=== PATIENT | male | born 1965 | race African-American/Black ===

== ENCOUNTER 2022-01-17 10:23 | Emergency (ER) | payer SELFPAY ==
[~2022-01-17] VITALS: Ht 177.8 cm; Wt 77.1 kg
[2022-01-17] MEDS ORDERED: NS IV 1000 ML 1,000 ML IV STA (11:14)
[2022-01-17] MEDS ORDERED: PROCHLORPERAZINE 10 MG/2ML INJ (COMPAZINE) IV ONE (11:15)
[2022-01-17] MEDS ORDERED: diphenhydrAMINE 50 MG/ML INJ (BENADRYL) IVP ONE (11:15)
[2022-01-17] MEDS ORDERED: KETOROLAC 30 MG/ML VIAL IVP ONE (11:15)
--- NOTE | 2022-01-17 11:19 | ED Headache ---
General Chief Complaint: COVID19 Suspect/Confirmed Stated Complaint: MIGRAINE Nursing Triage Note: PT BROUGHT IN BY [facility] FROM HOME WITH COMPLAINT OF HEADACHE X10 DAYS AND NAUSEA. PT STATES HE MOVED HERE 3 WEEKS AGO FROM [place] AND HAS BEEN LIVING IN A TENT. Source: patient Exam Limitations: no limitations History of Present Illness Date Seen by Provider: Jan 17, 2022 Time Seen by Provider: 11:16 Initial Comments Patient is a 56-year-old male who presents to the ED for head pain. Head pain is described as throbbing and generalized over the past 10 days. Rates pain to 5 out of 10 without any worsening pain with exertion or throughout the past 10 days. Reports photophobia. Reports some dizziness, lightheadedness and feels like he is going to pass out secondary to the head pain. Denies of any unilateral muscle weakness, visual loss. History of headaches and states feels similar however states headache typically resolves after a few days. He reports the first few days he had vomiting and diarrhea which has improved. He reports generalized weakness. Patient states he has secondary photophobia which exacerbates the headache. Associated neck tightness. Denies any fever, cough, shortness of breath, chest pain, abdominal pain, sore throat, ear pain or any difficulties with urination. No known medical problems according to patient, scalp tenderness, trauma, change in mental status, confusion Allergies and Home Medications Allergies Coded Allergies: No Known Drug Allergies (Unverified , 01/17/22) Patient Home Medication List Home Medication List Reviewed: Yes Review of Systems Review of Systems Constitutional: No chills, No diaphoresis, No malaise; weakness Eyes: Denies Drainage, Denies Decreased Acuity; Photophobia Ears, Nose, Mouth, Throat: denies ear pain, denies ear discharge Respiratory: No cough, No short of breath, No wheezing Cardiovascular: No chest pain, No edema Gastrointestinal: No abdominal pain; diarrhea, nausea, vomiting Genitourinary: No decreased output, No discharge Musculoskeletal: No back pain, No joint pain Skin: No change in color, No change in hair/nails All Other Systems Reviewed Negative Unless Noted: Yes Past Ttmdirc-Wpjkov-Xmthlk Hx Patient Social History Tobacco Use?: Yes Tobacco type used: Cigarettes Smoking Status: Current Everyday Smoker Use of E-Cig and/or Vaping dev: No Substance use?: No Alcohol Use?: Yes Alcohol Frequency: Once in a while Pt feels they are or have been: No Immunizations Up To Date First/Initial COVID19 Vaccinat: 2020 Second COVID19 Vaccination Saw: 2020 Physical Exam Vital Signs Vital Signs - First Documented 01/17/22 10:23 Temp 36.0 Pulse 72 Resp 20 B/P (MAP) 153/55 (87) Pulse Ox 100 O2 Delivery Room Air Capillary Refill : Less Than 3 Seconds Height, Weight, BMI Height: '" Weight: lbs. oz. kg; 24.00 BMI Method: General Appearance: WD/WN, no apparent distress HEENT: PERRL/EOMI, normal ENT inspection, TMs normal Neck: non-tender, full range of motion, supple, normal inspection Cardiovascular: regular rate, rhythm, no edema, no gallop, no JVD Respiratory: chest non-tender, lungs clear, normal breath sounds, no respiratory distress, no accessory muscle use Gastrointestinal: normal bowel sounds, non tender, soft, no organomegaly Back: normal inspection, no CVA tenderness, no vertebral tenderness Extremities: normal range of motion, non-tender, normal inspection, no pedal edema, no calf tenderness Skin: normal color, warm/dry Progress/Results/Core Measures Results/Orders Lab Results Laboratory Tests Test 01/17/22 10:42 01/17/22 11:23 01/17/22 11:35 Range/Units SARS-CoV-2 RNA (RT-PCR) Not Detected Not Detecte Urine Opiates Screen NEGATIVE NEGATIVE Urine Oxycodone Screen NEGATIVE NEGATIVE Urine Methadone Screen NEGATIVE NEGATIVE Urine Propoxyphene Screen NEGATIVE NEGATIVE Urine Barbiturates Screen NEGATIVE NEGATIVE Ur Tricyclic Antidepressants Screen NEGATIVE NEGATIVE Urine Phencyclidine Screen NEGATIVE NEGATIVE Urine Amphetamines Screen NEGATIVE NEGATIVE Urine Methamphetamines Screen NEGATIVE NEGATIVE Urine Benzodiazepines Screen NEGATIVE NEGATIVE Urine Cocaine Screen NEGATIVE NEGATIVE Urine Cannabinoids Screen POSITIVE H NEGATIVE White Blood Count 12.5 H 4.3-11.0 10^3/uL Red Blood Count 4.93 4.30-5.52 10^6/uL Hemoglobin 14.7 13.3-17.7 g/dL Hematocrit 44 40-54 % Mean Corpuscular Volume 90 80-99 fL Mean Corpuscular Hemoglobin 30 25-34 pg Mean Corpuscular Hemoglobin Concent 33 32-36 g/dL Red Cell Distribution Width 13.8 10.0-14.5 % Platelet Count 483 H 130-400 10^3/uL Mean Platelet Volume 8.7 L 9.0-12.2 fL Immature Granulocyte % (Auto) 1 % Neutrophils (%) (Auto) 35 L 42-75 % Lymphocytes (%) (Auto) 58 H 12-44 % Monocytes (%) (Auto) 6 0-12 % Eosinophils (%) (Auto) 0 0-10 % Basophils (%) (Auto) 1 0-10 % Neutrophils # (Auto) 4.4 1.8-7.8 10^3/uL Lymphocytes # (Auto) 7.2 H 1.0-4.0 10^3/uL Monocytes # (Auto) 0.8 0.0-1.0 10^3/uL Eosinophils # (Auto) 0.0 0.0-0.3 10^3/uL Basophils # (Auto) 0.1 0.0-0.1 10^3/uL Immature Granulocyte # (Auto) 0.1 0.0-0.1 10^3/uL Neutrophils % (Manual) 41 % Lymphocytes % (Manual) 37 % Monocytes % (Manual) 10 % Band Neutrophils 1 % Atypical Lymphocytes 7 % Reactive Lymphocytes 4 % Blood Morphology Comment NORMAL Sodium Level 138 135-145 MMOL/L Potassium Level 4.1 3.6-5.0 MMOL/L Chloride Level 101 98-107 MMOL/L Carbon Dioxide Level 28 21-32 MMOL/L Anion Gap 9 5-14 MMOL/L Blood Urea Nitrogen 12 7-18 MG/DL Creatinine 0.85 0.60-1.30 MG/DL Estimat Glomerular Filtration Rate 101 BUN/Creatinine Ratio 14 Glucose Level 101 70-105 MG/DL Calcium Level 9.7 8.5-10.1 MG/DL Corrected Calcium 9.5 8.5-10.1 MG/DL Total Bilirubin 0.5 0.1-1.0 MG/DL Aspartate Amino Transf (AST/SGOT) 19 5-34 U/L Alanine Aminotransferase (ALT/SGPT) 17 0-55 U/L Alkaline Phosphatase 59 40-136 U/L Total Protein 8.5 H 6.4-8.2 GM/DL Albumin 4.2 3.2-4.5 GM/DL Smear Scan YES My Orders Orders - AMI BARRAZA Ct Head Wo (01/17/22 11:14) Cbc With Automated Diff (01/17/22 11:14) Comprehensive Metabolic Panel (01/17/22 11:14) Iv/Invasive Line Insertion .IV start (01/17/22 11:14) Ketorolac Injection (Toradol Injection) (01/17/22 11:15) Diphenhydramine Injection (Benadryl Inje (01/17/22 11:15) Prochlorperazine Injection (Compazine In (01/17/22 11:15) Ns Iv 1000 Ml (Sodium Chloride 0.9%) (01/17/22 11:14) Drug Screen Stat (Urine) (01/17/22 11:20) Manual Differential (01/17/22 11:35) Medications Given in ED Current Medications Medications Dose Ordered Sig/Onesimo Route Start Time Stop Time Status Last Admin Dose Admin Diphenhydramine HCl 25 mg ONCE ONCE IVP 01/17/22 11:15 01/17/22 11:16 DC 01/17/22 11:38 25 MG Ketorolac Tromethamine 30 mg ONCE ONCE IVP 01/17/22 11:15 01/17/22 11:16 DC 01/17/22 11:40 30 MG Prochlorperazine Edisylate 10 mg ONCE ONCE IV 01/17/22 11:15 01/17/22 11:16 DC 01/17/22 11:36 10 MG Vital Signs/I&O 01/17/22 01/17/22 10:23 12:47 Temp 36.0 Pulse 72 Resp 20 B/P (MAP) 153/55 (87) 135/80 Pulse Ox 100 O2 Delivery Room Air Blood Pressure Mean: 87 Departure Communication (PCP) Patient presents the ED with head pain. Headache is diffuse. Patient NIH is 0. No current focal neural deficits. Patient is afebrile. No meningeal signs. No current chest pain, cough, shortness of breath. CT scan of the head was unremarkable. Negative COVID. Lab work was otherwise unremarkable. Patient Was given a liter fluid and migraine cocktail with complete resolution. No vomiting or diarrhea since the first few days of his symptoms. States that pain is 5 out of 10 without increase in intensity with exertion. Denies worst headache of his life but states the duration of the headache was concerning. He has no bruits. Denies history of coronary artery disease, CHF. No leg swelling. Continue with Tylenol and ibuprofen outpatient leg. If any worsening symptoms return back to ED for further evaluation. Impression Primary Impression: Headache Disposition: HOME, SELF-CARE Condition: Stable Departure-Patient Inst. Decision time for Depature: 12:31 Referrals: [facility] [place] Patient Instructions: Headache, Adult ED Add. Discharge Instructions: Continue with Tylenol or ibuprofen. If any worsening symptoms return back to ED for further evaluation All discharge instructions reviewed with patient and/or family. Voiced understanding. AMI BARRAZA Jan 17, 2022 11:19
[2022-01-17 11:44] LABS: AMPHETAMINE SCREEN, URINE NEGATIVE (NEGATIVE); BARBITURATE SCREEN URINE NEGATIVE (NEGATIVE); BENZODIAZEPINES SCREEN URINE NEGATIVE (NEGATIVE); CANNABINOID SCREEN, URINE POSITIVE (NEGATIVE); COCAINE SCREEN URINE NEGATIVE (NEGATIVE); METHADONE STAT NEGATIVE (NEGATIVE); OPIATE SCREEN URINE NEGATIVE (NEGATIVE); OXYCODONE STAT NEGATIVE (NEGATIVE); PROPOXYPHENE STAT NEGATIVE (NEGATIVE); TRICYCLIC ANTIDEPRESSANTS SCRE NEGATIVE (NEGATIVE)
[2022-01-17 11:49] LABS: BASOPHILS # (AUTO) 0.1 10^3/uL (0.0-0.1); BASOPHILS % (AUTO) 1 % (0-10); EOSINOPHILS % (AUTO) 0 % (0-10); HEMATOCRIT 44 % (40-54); HEMOGLOBIN 14.7 g/dL (13.3-17.7); LYMPHOCYTES # (AUTO) 7.2 10^3/uL (1.0-4.0); LYMPHOCYTES % (AUTO) 58 % (12-44); MEAN CORPUSCULAR HEMOGLOBIN 30 pg (25-34); MEAN CORPUSCULAR HGB CONC 33 g/dL (32-36); MEAN CORPUSCULAR VOLUME 90 fL (80-99); MEAN PLATELET VOLUME 8.7 fL (9.0-12.2); MONOCYTES # (AUTO) 0.8 10^3/uL (0.0-1.0); MONOCYTES % (AUTO) 6 % (0-12); NEUTROPHILS # (AUTO) 4.4 10^3/uL (1.8-7.8); NEUTROPHILS % (AUTO) 35 % (42-75); PLATELET COUNT 483 10^3/uL (130-400); WHITE BLOOD COUNT 12.5 10^3/uL (4.3-11.0)
[2022-01-17 11:51] LABS: SMEAR SCAN COMMENT YES
[2022-01-17 11:57] LABS: ALBUMIN 4.2 GM/DL (3.2-4.5); POTASSIUM 4.1 MMOL/L (3.6-5.0)
[2022-01-17 11:58] LABS: CALCIUM 9.7 MG/DL (8.5-10.1)
[2022-01-17 11:59] LABS: TOTAL PROTEIN 8.5 GM/DL (6.4-8.2)
[2022-01-17 12:01] LABS: BILIRUBIN,TOTAL 0.5 MG/DL (0.1-1.0)
[2022-01-17 12:03] LABS: CREATININE SERUM 0.85 MG/DL (0.60-1.30)
--- NOTE | 2022-01-17 12:08 | Diagnostic Imaging Report ---
PROCEDURE: CT head without contrast. TECHNIQUE: Multiple contiguous axial images were obtained through the brain without the use of intravenous contrast. Auto Exposure Controls were utilized during the CT exam to meet ALARA standards for radiation dose reduction. INDICATION: Headache. COMPARISON: None. FINDINGS: No intracranial hemorrhage, mass effect, hydrocephalus or extra-axial fluid collections. No CT evidence of territorial infarction. Incidental cavum septum pellucidum. Visualized paranasal sinuses and mastoids are unremarkable. Osseous structures are intact. IMPRESSION: No acute intracranial CT findings. Dictated by: Dictated on workstation # [id number]
[2022-01-17 12:11] LABS: ATYPICAL LYMPHOCYTES 7 %; BAND NEUTROPHILS 1 %; LYMPHOCYTES % (MANUAL) 37 %; MONOCYTES % (MANUAL) 10 %; NEUTROPHILS % (MANUAL) 41 %; REACTIVE LYMPHOCYTES 4 %
[2022-01-17 12:12] LABS: RBC MORPH NORMAL
[2022-01-17 12:47] VITALS: BP 135/80
== END 2022-01-17 12:47 | disposition home or self-care (01) ==
LOC: ER 10:24
DX: R51.9 Headache, unspecified (principal); F17.210 Nicotine dependence, cigarettes, uncomplicated; Z20.822 Contact with and (suspected) exposure to COVID-19
CPT/HCPCS: 36415; 70450; 80053; 80306; 85007; 85025; 85027; 87636